=== PATIENT | male | born 1965 | race Caucasian/White ===

== ENCOUNTER → 2017-04-04 | Outpatient (CLI) | payer OTHER ==
[~2017-04-04] MED LIST: CYCLOBENZAPRINE10 MG PO; NYSTATIN100000 U/M PO; VALACYCLOVIR HYD1 GM PO; VICODIN 5/500 505 MG PO; VICODIN ES 7501 TAB PO; ZIAC 2.5 MG-6.25 MG PO; ZOLOFT100 MG PO
[2017-04-04 08:51] LABS: BUN 20 mg/dl (7-24); CHLORIDE 103 mmol/L (98-107); CHOLESTEROL 149 mg/dL (<200); CREATININE 0.95 mg/dL (0.70-1.30); HDL CHOLESTEROL 45 mg/dl (40-60); LDL CHOLESTEROL 83 mg/dL (9-159); POTASSIUM 3.7 mmol/L (3.5-5.1); SODIUM 140 mmol/L (136-145); TRIGLYCERIDES 105 mg/dl (<150); VLDL CHOLESTEROL 21 mg/dL (6-40)
== END | disposition home or self-care (01) ==
LOC: LAB 07:51
PROVIDERS: Family Medicine
DX: E11.9 Type 2 diabetes mellitus without complications (principal)

== ENCOUNTER → 2018-11-02 | Outpatient (CLI) | payer OTHER ==
[2018-11-02 09:45] LABS: BUN 12 mg/dl (7-24); CHLORIDE 105 mmol/L (98-107); CHOLESTEROL 170 mg/dL (<200); CREATININE 0.98 mg/dL (0.70-1.30); HDL CHOLESTEROL 41 mg/dl (40-60); LDL CHOLESTEROL 105 mg/dL (9-159); POTASSIUM 3.9 mmol/L (3.5-5.1); SODIUM 140 mmol/L (136-145); TRIGLYCERIDES 121 mg/dl (<150); VLDL CHOLESTEROL 24 mg/dL (6-40)
== END | disposition home or self-care (01) ==
LOC: LAB 08:07
PROVIDERS: Family Medicine
DX: E11.9 Type 2 diabetes mellitus without complications (principal); E78.00 Pure hypercholesterolemia, unspecified

== ENCOUNTER → 2019-06-22 | Outpatient (CLI) | payer OTHER ==
[2019-06-22 11:14] LABS: BUN 9 mg/dl (7-24); CHLORIDE 102 mmol/L (98-107); CHOLESTEROL 123 mg/dL (<200); CREATININE 1.07 mg/dL (0.70-1.30); POTASSIUM 3.8 mmol/L (3.5-5.1); SODIUM 137 mmol/L (136-145); TRIGLYCERIDES 87 mg/dl (<150); VLDL CHOLESTEROL 17 mg/dL (6-40)
[2019-06-22 11:16] LABS: HDL CHOLESTEROL 41 mg/dl (40-60); LDL CHOLESTEROL 65 mg/dL (9-159)
== END | disposition home or self-care (01) ==
LOC: LAB 10:18
PROVIDERS: Family Medicine
DX: E11.9 Type 2 diabetes mellitus without complications (principal)

== ENCOUNTER → 2020-04-30 | Outpatient (CLI) | payer OTHER ==
[2020-04-30 08:48] LABS: BUN 13 mg/dl (7-24); CHLORIDE 105 mmol/L (98-107); CHOLESTEROL 86 mg/dL (<200); CREATININE 0.95 mg/dL (0.70-1.30); HDL CHOLESTEROL 38 mg/dl (40-60); LDL CHOLESTEROL 34 mg/dL (9-159); POTASSIUM 3.4 mmol/L (3.5-5.1); SODIUM 139 mmol/L (136-145); TRIGLYCERIDES 68 mg/dl (<150); URIC ACID 4.3 mg/dL (3.5-7.2); VLDL CHOLESTEROL 14 mg/dL (6-40)
== END | disposition home or self-care (01) ==
LOC: LAB 07:57
PROVIDERS: ATTEND Family Medicine
DX: I10 Essential (primary) hypertension (principal); E11.9 Type 2 diabetes mellitus without complications; M10.00 Idiopathic gout, unspecified site

== ENCOUNTER → 2020-05-09 | Outpatient (CLI) | payer OTHER | END | disposition home or self-care (01) | LOC: COVID19 12:56 | PROVIDERS: ATTEND Internal Medicine | DX: U07.1 COVID-19 (principal) ==

== ENCOUNTER 2020-12-12 20:09 | Emergency (ER) | payer OTHER ==
[~2020-12-12] VITALS: Ht 190.5 cm; Wt 86.2 kg
[2020-12-12] MEDS ORDERED: METFORMIN HYD1000 MG PO (20:23)
[2020-12-12] MEDS ORDERED: MEDROL DOSEPAK4 MG PO (20:58)
== END 2020-12-12 21:25 | disposition home or self-care (01) ==
LOC: ED 20:09
DX: G83.4 Cauda equina syndrome (principal); M54.5 Low back pain; Z88.2 Allergy status to sulfonamides; Z91.041 Radiographic dye allergy status; Z79.899 Other long term (current) drug therapy

== ENCOUNTER → 2021-01-23 | Outpatient (CLI) | payer OTHER ==
[~2021-01-23] MED LIST changes: +MEDROL DOSEPAK4 MG PO; +METFORMIN HYD1000 MG PO
== END | disposition home or self-care (01) ==
LOC: RAD 13:47
PROVIDERS: ATTEND Chiropractor
DX: M51.34 Other intervertebral disc degeneration, thoracic region (principal); M47.814 Spondylosis without myelopathy or radiculopathy, thoracic region; G95.89 Other specified diseases of spinal cord

== ENCOUNTER → 2021-01-30 | Outpatient (CLI) | payer OTHER ==
[2021-01-30 09:01] LABS: BUN 16 mg/dl (7-24); CHLORIDE 106 mmol/L (98-107); CHOLESTEROL 105 mg/dL (<200); LDL CHOLESTEROL 36 mg/dL (9-159); POTASSIUM 3.8 mmol/L (3.5-5.1); SODIUM 139 mmol/L (136-145); TRIGLYCERIDES 144 mg/dl (<150)
== END | disposition home or self-care (01) ==
LOC: LAB 07:58
PROVIDERS: ATTEND Family Medicine
DX: E11.9 Type 2 diabetes mellitus without complications (principal)

== ENCOUNTER 2023-03-02 08:04 | Inpatient (IN) | payer OTHER ==
[2023-03-02] VITALS (11 sets, daily range): BP systolic 105–158; BP diastolic 41–77
[~2023-03-02] VITALS: Ht 190.5 cm; Wt 123.4 kg
[2023-03-02 08:55] LABS: BILIRUBIN Negative (Negative); BLOOD Negative (Negative); CLARITY Clear (Clear); COLOR Yellow (Yellow); GLUCOSE 3+ (Negative); KETONE 1+ (Negative); LEUKO ESTERASE Negative (Negative); NITRITE Negative (Negative); SPECIFIC GRAVITY 1.025 (1.001-1.030); UROBILINOGEN 0.2 E.U./dl (0.0-1.0)
[2023-03-02 09:01] LABS: BASO % 0.5 % (0.0-1.0); EOS # 0.2 10*3/uL (0.0-0.4); EOS % 2.6 % (1.0-4.0); HEMATOCRIT 43.5 % (42.0-52.0); LYMPH # 1.3 10*3/uL (1.3-4.4); LYMPH % 20.5 % (27.0-41.0); MEAN CELL VOLUME 86.8 fl (80.0-94.0); MEAN CORPUSCULAR HGB 29.7 pg (27.0-31.0); MEAN CORPUSCULAR HGB CONC 34.3 g/dl (33.0-37.0); MEAN PLATELET VOLUME 8.9 fl (9.6-12.3); MONO # 0.4 10*3/uL (0.1-1.0); MONO % 6.1 % (3.0-9.0); NEUT # 4.3 10*3/uL (2.3-7.9); NEUT % 70.1 % (47.0-73.0); PLATELET COUNT AUTOMATED 226 10*3/uL (130-400); RED BLOOD COUNT 5.01 10*6/uL (4.50-5.90); RED CELL DISTRI WIDTH 13.1 % (0-14.5); WHITE BLOOD COUNT 6.1 10*3/uL (4.8-10.8)
[2023-03-02 09:08] LABS: WBC 0-2 wbc/hpf (0-5)
[2023-03-02 09:13] LABS: ACT PARTIAL THROMBO TIME 29.7 SECONDS (20.0-32.1); INTERNATIONAL NORM RATIO 0.9 (2.0-3.5)
[2023-03-02 09:24] LABS: ALKALINE PHOSPHATASE 79 U/L (46-116); BUN 7 mg/dl (9-23); CHLORIDE 103 mmol/L (98-107); LIPASE 29 U/L (12-53); POTASSIUM 3.7 mmol/L (3.4-5.1); SGPT/ALT 12 U/L (10-49); TOTAL PROTEIN 7.1 gm/dL (6.0-8.0)
[2023-03-02] MEDS ORDERED: JARDIANCE10 MG PO (12:44)
[2023-03-02] MEDS ORDERED: METFORMIN HYD1000 MG PO (12:45)
[2023-03-02] MEDS ORDERED: LIPITOR20 MG PO (12:45)
[2023-03-02] MEDS ORDERED: POTASSIUM CHLO10 MEQ PO (12:45)
[2023-03-03] VITALS: BP 115/51
[2023-03-03 08:00] VITALS: BP 155/69
[2023-03-03 08:06] LABS: BASO % 0.1 % (0.0-1.0); HEMATOCRIT 47.6 % (42.0-52.0); LYMPH # 1.2 10*3/uL (1.3-4.4); LYMPH % 10.9 % (27.0-41.0); MEAN CELL VOLUME 89.8 fl (80.0-94.0); MEAN CORPUSCULAR HGB 28.7 pg (27.0-31.0); MEAN CORPUSCULAR HGB CONC 31.9 g/dl (33.0-37.0); MEAN PLATELET VOLUME 9.2 fl (9.6-12.3); MONO # 0.6 10*3/uL (0.1-1.0); MONO % 5.1 % (3.0-9.0); NEUT # 9.4 10*3/uL (2.3-7.9); NEUT % 83.4 % (47.0-73.0); PLATELET COUNT AUTOMATED 263 10*3/uL (130-400); WHITE BLOOD COUNT 11.3 10*3/uL (4.8-10.8)
[2023-03-03 08:35] LABS: ALKALINE PHOSPHATASE 80 U/L (46-116); BUN 10 mg/dl (9-23); CHLORIDE 106 mmol/L (98-107); CHOLESTEROL 126 mg/dL (<200); FREE T4 1.41 ng/dl (0.89-1.76); LDL CHOLESTEROL 69 mg/dL (9-159); SGPT/ALT 13 U/L (10-49); TOTAL PROTEIN 7.3 gm/dL (6.0-8.0); TRIGLYCERIDES 58 mg/dl (<150)
[2023-03-03 08:41] LABS: POTASSIUM 4.7 mmol/L (3.4-5.1)
[2023-03-03 08:53] LABS: VITAMIN D, 25-HYDROXY 54.2 ng/mL (30-100)
[2023-03-03] MEDS ORDERED: HYDROCODONE-AC1 EAC1 PO (11:50)
[2023-03-03 11:58] VITALS: BP 135/58
== END 2023-03-03 14:10 | disposition home or self-care (01) | DRG 343 ==
LOC: ED 08:04 → EDHOLD 09:47 → 5E 09:47
PROVIDERS: Emergency Medicine; Family Medicine; ADMIT Internal Medicine; ATTEND Internal Medicine
PROC: 0DTJ4ZZ Resection of Appendix, Percutaneous Endoscopic Approach (ICD-10-PCS; principal; 2023-03-02)
PROC: 5A09357 Assistance with Respiratory Ventilation, Less than 24 Consecutive Hours, Continuous Positive Airway Pressure (ICD-10-PCS; 2023-03-03)
DX: K35.30 Acute appendicitis with localized peritonitis, without perforation or gangrene (principal); E78.5 Hyperlipidemia, unspecified; I10 Essential (primary) hypertension; E11.65 Type 2 diabetes mellitus with hyperglycemia; Z88.2 Allergy status to sulfonamides; Z91.041 Radiographic dye allergy status; Z83.3 Family history of diabetes mellitus; Z87.442 Personal history of urinary calculi